=== PATIENT | female | born 1985 | race Caucasian/White ===

== ENCOUNTER 2016-08-12 14:47 | Emergency (ER) | payer SELFPAY ==
[~2016-08-12] VITALS: Ht 160 cm; Wt 65.8 kg
[2016-08-12 15:54] VITALS: BP 135/92
== END 2016-08-12 16:20 | disposition home or self-care (01) ==
LOC: ER 14:49
DX: N39.0 Urinary tract infection, site not specified (principal); Q62.10 Congenital occlusion of ureter, unspecified; Z87.440 Personal history of urinary (tract) infections; F17.210 Nicotine dependence, cigarettes, uncomplicated